=== PATIENT | male | born 1980 | race Caucasian/White ===

== ENCOUNTER 2016-10-12 01:57 | Emergency (ER) | payer SELFPAY ==
--- NOTE | ~2016-10-12 | EKG ---
PATIENT: AYAD BEE UNIT #: [id number] Ventricular Rate: 120 BPM Atrial Rate: 120 BPM P-R Interval: 148 ms QRS Duration: 94 ms Q-T Interval: 322 ms QTC Calculation(Bezet): 455 ms P [place]: 68 degrees Calculated R [place]: 93 degrees Calculated T [place]: 27 degrees Diagnosis Line: Sinus tachycardia Diagnosis Line: Rightward axis Diagnosis Line: Poor R wave progression questionable lead position Diagnosis Line: or body habitus Abnormal ECG Diagnosis Line: When compared with ECG of 12-JUL-2016 20:21, Diagnosis Line: No significant change was found Diagnosis Line: Confirmed by TEGAN PATEL MD ([id number]) on 10/16/2016 Diagnosis Line: 7:59:56 PM INTERPRETING MD: JORGE MARINELLI
--- NOTE | ~2016-10-12 | CT16 ---
[facility] A Service [facility] RADIOLOGY TEXT RESULTS PATIENT: AYAD BEE LOCATION: SED : 84 UNIT #: [id number] AGE: [address]: Dirk Gupta DO SEX: M ORDER DR: [id number] [address] [address] [id number] E MR#: [id number] Acc #: [id number] NAME: AYAD BEE. : 1980 SEX: M STUDY DATE/TIME: 10/12/2016 03:01 UNIT: SED ROOM: STUDY DESCRIPTION: CT Angio Chest for PE Attending Physician: Dirk Gupta D.O. Ordering Physician: Dirk Gupta D.O. Primary Care Physician: No Primary Care Physician MEDICAL IMAGING REPORT This report is preliminary unless electronic signature is present. EXAM Chest CTA, 10/12 at 03:01. INDICATIONS Chest pain and heart racing with palpitations for 1 hour prior to arrival. D-dimer is 222. TECHNIQUE Axial images were obtained through the chest following IV contrast administration. 3-D reformats were obtained. No comparison CT. This CT exam was performed with one or more of the following radiation dose reduction techniques: automatic exposure control, adjustment of mA and/or kV according to patient size, and iterative reconstruction. FINDINGS There is no pulmonary embolism or aortic dissection. There is no pleural or pericardial effusion. There is no adenopathy. The lungs are clear. No pneumothorax is seen. Continuation through the abdomen is unremarkable. IMPRESSION 1. No pulmonary embolism or aortic dissection. 2. Normal chest CT. Dictated by... Nahid Griffith Jr., M.D. THIS IS AN ELECTRONICALLY VERIFIED REPORT Nahid Griffith Jr., M.D. at 10/12/2016 12:38 PM SIRIK/tony TD: 10/12/2016 09:54 JOB #: [id number] [facility] A Service of [facility] RADIOLOGY TEXT RESULTS PATIENT: AYAD BEE LOCATION: [facility] [place] : [birth year] UNIT #: [id number] AGE: [address]: Dirk Gupta DO SEX: M ORDER DR: MEDICAL IMAGING REPORT Page 1 of 1
[~2016-10-12 01:57] MED LIST: ALBUTEROL17 GM INH; AMOXICILLIN875 MG PO; K-DUR20 ME2 PO; NO MEDICATIONS; POTASSIUM CHLO20 ME1 PO; PRILOSEC PO; PROMETHAZI6.25 MG/5 PO; VOLTAREN75 MG PO
[2016-10-12 02:09] LABS: BASOPHIL# 0.1 X10e3 (0-0.3); BASOPHIL% 0.9 % (0-2.5); EOSINOPHIL# 0.2 X10e3 (0-0.7); EOSINOPHIL% 1.1 % (0.0-7.0); HEMATOCRIT 45.7 % (38.0-50.0); LYMPHOCYTE# 5.1 X10e3 (1.0-3.5); MEAN CORPUSCULAR HEMOGLOBIN 32.6 PG (28-34); MEAN PLATELET VOLUME 8.7 FL (6.5-11.5); MONOCYTE# 0.8 X10e3 (0-1.0); MONOCYTE% 6.1 % (3.0-12.0); NEUTROPHIL# 7.2 X10e3 (1.5-7.1); NEUTROPHIL% 53.9 % (40-75); PLATELET COUNT 226 X10e3 (140-420); RED BLOOD COUNT 4.92 X10e (3.90-5.60); RED CELL DISTRIBUTION WIDTH 13.9 % (11.0-15.5); WHITE BLOOD COUNT 13.3 X10e3 (4.0-10.5)
[2016-10-12 02:11] LABS: DIFF IND NO
[2016-10-12 02:28] LABS: ALBUMIN SERUM 4.8 g/dL (3.5-5.0); BILIRUBIN,TOTAL 0.1 mg/dL (0.2-2.0); BUN/CREATININE RATIO 11.81; CALCIUM SERUM 9.2 mg/dL (8.4-10.2); CREATININE SERUM 1.1 mg/dL (0.6-1.4); GLOM FILT RATE Estimated 87.1 mL/min (>60); MAGNESIUM 2.1 mg/dL (1.6-3.0); POTASSIUM 3.5 mmol/L (3.5-5.1); PROTEIN TOTAL SERUM 7.7 g/dL (6.0-8.3); PROTHROMBIN TIME (PATIENT) 11.6 SECONDS (9.5-12.4)
[2016-10-12 02:28] LABS: POC - CKMB <1.0 ng/mL (0.0-7.9); POC - MYOGLOBIN 31.5 ng/mL (0.0-169.0); POC - TROPONIN <0.05 ng/mL (<=0.05)
[2016-10-12 02:35] LABS: PARTIAL THROMBOPLASTIN TIME 36.2 SECONDS (25.6-38.1)
[2016-10-12 02:42] LABS: URINE SOURCE CLEAN CATCH
[2016-10-12 02:44] LABS: URINE APPEARANCE CLEAR; URINE BILIRUBIN NEG (NEG); URINE BLOOD NEG (NEG); URINE COLOR YELLOW; URINE GLUCOSE NEG (NORM); URINE KETONE NEG (NEG); URINE LEUKOCYTE ESTERASE NEG (NEG); URINE NITRATE NEG (NEG); URINE PROTEIN NEG (NEG); URINE UROBILINOGEN 0.2 MG/DL (NORM)
[2016-10-12 02:46] LABS: MICRO INDICATED? NO
[2016-10-12 02:54] LABS: AMPHETAMINE NEG (NEG); BARBITURATES NEG (NEG); BENZODIAZEPINES NEG (NEG); COCAINE NEG (NEG); MARIJUANA NEG (NEG); OPIATES POS (NEG); TRICYCLIC ANTIDEPRESSANTS NEG (NEG); U METHADONE NEG (NEG)
[2016-10-12 03:57] LABS: POC - CKMB <1.0 ng/mL (0.0-7.9); POC - MYOGLOBIN 26.7 ng/mL (0.0-169.0); POC - TROPONIN <0.05 ng/mL (<=0.05)
== END 2016-10-12 06:01 | disposition left against medical advice (07) ==
LOC: SED 01:57
PROVIDERS: Emergency Medicine
DX: R00.2 Palpitations (principal)
CPT/HCPCS: 36415; 71275; 80053; 80307; 81003; 82553; 83735; 83874; 84484; 85025; 85379; 85610; 85730; 93005; 96360; 96361; 99284; G0480; Q9967